=== PATIENT | female | born 1990 | race Caucasian/White ===

== ENCOUNTER → 2020-07-07 | Outpatient (CLI) | payer OTHER ==
[2020-07-07 15:09] LABS: BASOPHIL % 0.9 % (0.0-0.2); EOSINOPHIL # 0.1 10^3/uL (0.0-0.2); EOSINOPHIL % 2.1 % (0.0-5.0); LYMPHOCYTES % 46.1 % (24.0-44.0); MEAN CORP HGB 31.7 pg (26-34); MONOCYTES # 0.4 10^3/uL (0.3-0.8); MONOCYTES % 9.2 % (5.0-12.0); NEUTROPHIL # 1.8 10^3/uL (1.8-7.7); NEUTROPHILS % 41.7 % (41.0-85.0); PLATELET COUNT 245 10^3/uL (150-400); RED CELL DISTRIBUTION WIDTH 11.9 % (11.5-14.5)
[2020-07-07 15:33] LABS: CALCIUM 8.8 mg/dL (8.4-10.5); CARBON DIOXIDE 30.5 mmol/L (20.0-32)
[2020-07-08 10:12] LABS: HEP A AB, IgM Negative (Negative)
== END | disposition home or self-care (01) ==
LOC: LAB 14:53
PROVIDERS: ATTEND Obstetrics & Gynecology
DX: Z01.419 Encounter for gynecological examination (general) (routine) without abnormal findings (principal); Z72.51 High risk heterosexual behavior
CPT/HCPCS: 36415; 80053; 80074; 84443; 85025; 86318; 86592; 87529